=== PATIENT | male | born 1940 | race Caucasian/White ===

== ENCOUNTER 2019-08-21 06:28 | Day surgery (SDC) | payer MEDICARE, MEDICAID ==
[~2019-08-21] VITALS: Ht 172.7 cm; Wt 74.6 kg
[2019-08-21 07:04] VITALS: BP 127/88
[2019-08-21] MEDS ORDERED: SODIUM CHLORIDE 0.9% 1,000 ML IV SCH (07:07)
[2019-08-21] MEDS ORDERED: CEFAZOLIN PMX 1GM/50ML 50 ML IV ONE (07:30)
[2019-08-21] MEDS ORDERED: LIDOCAINE 1%, 10ML ONE (08:16)
[2019-08-21] MEDS ORDERED: LIDOCAINE 1%, 20ML ONE (08:16)
[2019-08-21] MEDS ORDERED: FENTANYL PF 100 MCG/2ML ONE ×2 (08:33)
[2019-08-21] MEDS ORDERED: MIDAZOLAM 1 MG/ML, 5ML ONE (08:33)
[2019-08-21] MEDS ORDERED: NALOXONE 1 MG/ML, 2ML ONE (08:34)
[2019-08-21] MEDS ORDERED: FLUMAZENIL 0.1 MG/1 ML, 5ML ONE (08:34)
== END 2019-08-21 14:00 | disposition home or self-care (01) ==
LOC: OUT 06:28
PROVIDERS: ATTEND Internal Medicine
DX: Z45.2 Encounter for adjustment and management of vascular access device (principal); C18.7 Malignant neoplasm of sigmoid colon; C78.7 Secondary malignant neoplasm of liver and intrahepatic bile duct; I10 Essential (primary) hypertension; Z72.89 Other problems related to lifestyle
CPT/HCPCS: 36561; 77001; 99156; 99157; C1769; C1788; C1894; J0690; J1642; J2250; J3010; J7030; J2310